=== PATIENT | female | born 1955 | race Native Hawaiian/Other Pacific Islander ===

== ENCOUNTER 2020-06-26 14:26 | Outpatient (CLI) | payer BC, OTHER | END 2020-06-26 20:02 | disposition home or self-care (01) | LOC: INF 14:26 | PROVIDERS: ATTEND Internal Medicine Endocrinology, Diabetes & Metabolism | DX: Z23 Encounter for immunization (principal) | CPT/HCPCS: 96372 ==

== ENCOUNTER 2020-07-22 14:00 | Outpatient (CLI) | payer BC, OTHER | END 2020-07-22 19:27 | disposition home or self-care (01) | LOC: INF 14:00 | PROVIDERS: ATTEND Internal Medicine | DX: Z23 Encounter for immunization (principal) | CPT/HCPCS: 96372 ==